=== PATIENT | male | born 1980 | race Asian ===

== ENCOUNTER 2017-04-06 11:51 | Emergency (ER) | payer SELFPAY ==
[~2017-04-06] VITALS: Ht 180.3 cm; Wt 100.0 kg
[2017-04-06] MEDS ORDERED: KETOROLAC TROMETHAMINE 60 MG/2 ML VIAL IM ONE (13:00)
[2017-04-06] MEDS ORDERED: METHOCARBAMOL 500 MG TABLET PO ONE (13:00)
[2017-04-06 13:13] VITALS: BP 128/88
== END 2017-04-06 13:14 | disposition home or self-care (01) ==
LOC: EMS 11:53
DX: S16.1XXA Strain of muscle, fascia and tendon at neck level, initial encounter (principal); R03.0 Elevated blood-pressure reading, without diagnosis of hypertension; F12.90 Cannabis use, unspecified, uncomplicated; F17.210 Nicotine dependence, cigarettes, uncomplicated; Z88.1 Allergy status to other antibiotic agents; V49.40XA Driver injured in collision with unspecified motor vehicles in traffic accident, initial encounter; Y93.89 Activity, other specified; Y92.89 Other specified places as the place of occurrence of the external cause; Y99.8 Other external cause status
CPT/HCPCS: 96372; 99283; J1885

== ENCOUNTER 2022-05-31 00:55 | Emergency (ER) | payer SELFPAY ==
[~2022-05-31] VITALS: Ht 182.9 cm; Wt 109.1 kg
[2022-05-31] MEDS ORDERED: CEPH-558 PO (01:36)
[2022-05-31] MEDS ORDERED: KETOROLAC TROMETHAMINE 30 MG/ML VIAL IM ONE (01:45)
[2022-05-31 02:09] VITALS: BP 132/75
== END 2022-05-31 02:16 | disposition home or self-care (01) ==
LOC: EMS 00:56
DX: M54.81 Occipital neuralgia (principal); F10.20 Alcohol dependence, uncomplicated; F12.90 Cannabis use, unspecified, uncomplicated; F17.210 Nicotine dependence, cigarettes, uncomplicated; Z88.2 Allergy status to sulfonamides
CPT/HCPCS: 99283; 96372; J1885